=== PATIENT | male | born 1940 | race Caucasian/White ===

== ENCOUNTER 2025-06-19 12:13 | Emergency (ER) | payer OTHER, SELFPAY ==
[2025-06-19 12:15] VITALS: BP 154/71
[2025-06-19 12:21] VITALS: BP 154/71; BMI 24.0
--- NOTE | 2025-06-19 12:35 | ED.GENMED ---
History of Present Illness
General
Chief Complaint: Fall
Source: patient, spouse and ambulance crew
Exam Limitations: none
Time Seen by Provider: 06/19/25 12:22
History of Present Illness
History of Present Illness:
Note:
CHIEF COMPLAINT(S)
Fall with suspected trauma.
HISTORY OF PRESENT ILLNESS
The patient is an 84-year-old male who presented after a fall that occurred while navigating a curb near a store location. The fall resulted in some minor injuries, specifically a skin tear on the right wrist, a contusion on the right hand, and a
contusion on the right eyelid. The patient reported he was on the phone at the time of the fall, which led to a lack of awareness about the immediate decision-making or recommendations around visiting a trauma center. The patient has not experienced
any significant pain in the regions of injury, despite some thorough examination pressure, suggesting there may be no serious underlying issues at the site of bruising or tearing.
The EMS recommended a trauma evaluation due to the potential risk of intracranial bleeding. This recommendation was based on a phone consultation advising further examination for the possibility of internal bleeding. After assessing the situation, I
proposed obtaining a CT scan of the head and neck to rule out any traumatic intracranial injury or cervical spine injury. The patient accepted this plan.
SOCIAL HISTORY
The patient mentioned frequent travel to a particular store to purchase stokes, which he enjoys. He reported an interest in specific cultural heritages and has a history connected to a background. No specific mention of substance use,
other than a social mention of alcohol consumption related to cultural traditions.
PHYSICAL EXAM
General: Alert, no acute distress.
Skin: Skin tear on the right wrist, otherwise warm and dry.
Head: Normocephalic, atraumatic. Right eyelid contusion present.
Neck: Supple, trachea midline.
Eye, Ears, Nose, Mouth, and Throat: Oral mucosa moist.
Cardiovascular: Normal peripheral perfusion, No edema.
Respiratory: Respirations are non-labored.
Gastrointestinal: Abdomen nondistended.
Back: Normal range of motion, Normal alignment.
Musculoskeletal: Normal ROM, normal strength. Right hand contusion present.
Neurological: Alert and oriented to person, place, time, and situation, No focal neurological deficit observed.
Psychiatric: Cooperative, appropriate mood & affect.
PLAN
- CT scan of head and neck to evaluate the risk of intracranial bleeding or cervical injury.
- Monitor for any changes in neurological status or increasing local pain at the injury sites.
- Discuss follow-up care based on CT scan findings once available.
DIFFERENTIAL DIAGNOSIS
The Differential Diagnosis includes, in no particular order and is not limited to:
1. Intracranial hemorrhage
2. Concussion
3. Cervical spine injury
4. Soft tissue injury
5. Fracture (wrist, hand)
6. Contusion
7. Dehydration leading to fall
8. Orthostatic hypotension
9. Vestibular dysfunction
10. Medication side effects leading to dizziness or impaired gait.
CARE-UPDATE
06/19/25 - 14:05
CT head and cervical spine show no traumatic findings. Chronic lung findings indicative of an emphysematous disease noted on CT cervical spine. Anterior listhesis of C5 on C6 and C7 on C1 observed. Patient remains stable and is cleared for
discharge. Recommend follow-up with primary care for ongoing management.
Disposition:
SUMMARY OF ENCOUNTER
The patient is an 84-year-old male who presented to the emergency department after experiencing a fall. The fall resulted in a right wrist skin tear, a contusion on the right hand, and a contusion on the right eyelid. There was concern for potential
intracranial bleeding due to the circumstances of the fall. A CT scan of the head and neck was conducted to rule out intracranial injury or cervical spine injury.
DISPOSITION
Discharge.
ASSESSMENT
Right eyelid contusion, right wrist abrasion, and right hand contusion secondary to a fall while on apixaban (Eliquis).
PLAN
- Discharge the patient with no new prescription medications.
- Follow up with primary care for ongoing management.
- Monitor for any changes in neurological status or increasing pain at injury sites.
INDEPENDENT REVIEW OF LABS AND INTERPRETATION OF TESTS
- My independent interpretation of the CT scan of the head and neck shows no signs of intracranial hemorrhage or cervical spine fracture.
FOLLOW-UP INSTRUCTIONS
The patient is advised to follow up with primary care to ensure proper recovery and management of any potential complications from the fall.
MEDICAL DECISION MAKING
1. Number and Complexity of Problems Addressed:
Chronic conditions affecting care include the history of fall and use of apixaban. Differential Diagnosis includes intracranial hemorrhage, concussion, cervical spine injury, soft tissue injury, fracture (wrist, hand), contusion, dehydration leading
to fall, orthostatic hypotension, vestibular dysfunction, and medication side effects leading to dizziness.
2. Data:
Category 1:
- My independent interpretation of the CT scan of the head and neck shows no traumatic findings.
3. Risk:
Consideration of Admission/Observation: Escalation of care including admission/observation was considered given the complexity and risk of the patients presenting complaint, exam findings, and their underlying comorbidities. However, ultimately I
feel the patient is safe for outpatient management with close follow-up. Reasoning: Work-up is reassuring, does not reveal any acute life/organ-threatening processes, patients symptoms well controlled upon reevaluation, reexamination is reassuring,
vitals are stable, patient agreeable with discharge, reliable for follow-up.
DIAGNOSIS
- Contusion of the right eyelid (S00.11XA).
- Abrasion of the right wrist (S60.511A).
- Contusion of the right hand (S60.211A).
- Fall while on anticoagulant therapy (Z79.01).
Phy Exam
Physical Exam
Physical Exam:
.
Course
Orders/Labs/Results
Orders:
Orders
06/19/25 12:15
Electrocardiogram (*1) Urgent
Reason for Study: Vertigo / Dizzy
CT Head W/o Iv Contrast Urgent
Comment:
Reason For Exam: fall with head/neck strike
06/19/25 12:16
EKG- Treatment ONCE
06/19/25 12:36
CT Cervical Spine W/o Iv Contr Urgent
Comment:
Reason For Exam: fall
Vital Signs
Initial and Last Documented VS:
Initial Vital Signs
Pulse Resp Pulse Ox
77 17 97
06/19/25 12:15 06/19/25 12:15 06/19/25 12:15
Last Documented Vital Signs
Temp Pulse Resp BP Pulse Ox
98.1 F 75 20 154/71 97
06/19/25 12:21 06/19/25 12:21 06/19/25 12:21 06/19/25 12:21 06/19/25 12:35
*Pulse Oximetry
SaO2: 97
Oxygen Mode of Delivery: Room air
Patient hypoxic: no
*Critical Care Note
Total Time (30-74mins, 75-104mins- exclusive of procedures): Not Applicable
ED Attending Note
-
Portions of this chart may have been created with voice recognition software.� Occasional wrong word or��sound alike� substitutions may have occurred due to the inherent limitations of voice recognition software.
Discharge Plan
Departure
Patient Disposition: Home (Routine Discharge)
Date of Disposition: 06/19/25
Time of Disposition: 14:07
Patient with high blood pressure during this ER visit?: Yes
Condition: Good
Discharge Problem:
Fall, Head injury, acute, Abrasion hand
Instructions: Head Injury in Adults (DC), Contusion (DC), Skin Abrasions (DC), BLOOD PRESSURE
Prescriptions:
No Action
atorvastatin 10 mg Tablet
10 mg PO DAILY
tamsulosin [Flomax] 0.4 mg Capsule
0.4 mg PO DAILY
folic acid 1 mg Tablet
1 mg PO DAILY
Centrum Silver Tablet
1 tab PO DAILY
Eliquis 2.5 mg Tablet
2.5 mg PO BID
metoprolol succinate 25 mg Capsule,Sprinkle,Er 24hr
25 mg PO DAILY
Referrals:
Vanessa Moulton DO [Family Provider, Family Practice] - Call in 1-3 days for appt
Interventions
Interventions:
*Risk Screen - Suicide Last Done: 06/19/25 12:21
*General Assessment Last Done: 06/19/25 12:21
*Neglect/Abuse Screening Last Done: 06/19/25 12:21
*ED- Fall Risk Assessment Last Done: 06/19/25 12:21
*ED COVID-19 Vaccine History Last Done: 06/19/25 12:21
ED-Musculoskeletal Assessment Last Done: 06/19/25 12:21
ED- Neurological Assessment Last Done: 06/19/25 12:21
ED-Skin Assessment Last Done: 06/19/25 12:21
Discharge Date and Time
Print Language: [id number]
[2025-06-19 13:00] VITALS: BP 151/71
[2025-06-19] MEDS: ADACEL 0.5 ML IM (14:28)
== END 2025-06-19 14:41 | disposition home or self-care (01) ==
LOC: EMR 12:13
PROVIDERS: EMERGENCY PHYSICIAN Emergency Medicine; FAMILY PHYSICIAN Family Medicine Geriatric Medicine
DX: S00.11XA Contusion of right eyelid and periocular area, initial encounter (principal); S60.811A Abrasion of right wrist, initial encounter; S60.221A Contusion of right hand, initial encounter; W10.1XXA Fall (on)(from) sidewalk curb, initial encounter; Z79.01 Long term (current) use of anticoagulants; Z23 Encounter for immunization
CPT/HCPCS: 99284; 90471; 70450; 72125; 90715; 93005